=== PATIENT | male | born 1995 | race Caucasian/White ===

== ENCOUNTER 2021-04-03 12:29 | Emergency (ER) | payer MEDICAID, SELFPAY ==
[2021-04-03 12:31] VITALS: BP 138/92; PULSE 116; RESP 20; TEMP 36.8; O2SAT 97; BMI 33.8
--- NOTE | 2021-04-03 12:51 | CT_ITS ---
STUDY: CT BRAIN WITHOUT CONTRAST REASON FOR EXAM: Male, 25 years old. Trauma RADIATION DOSAGE (If Supplied By Facility): CTDIvol = ( 44.99 ) mGy, DLP = ( 745.49 ) mGycm TECHNIQUE: Transaxial CT imaging of the brain was performed without administration of intravenous contrast material. Individualized dose optimization techniques were used for this CT. COMPARISON: No relevant priors. FINDINGS: Normal soft tissue structures. Normal calvarium. Normal size ventricles and extra-axial spaces for the patient''s age. Normal white matter tracts of the cerebral hemispheres. Normal basal ganglia and thalami. Normal brainstem. Normal cerebellum. There is no intracranial hemorrhage. There are no findings of an acute ischemic infarction. Normal visualized paranasal sinuses. CT/Brain/Head without Contrast IMPRESSION: Normal unenhanced CT scan of the brain. Electronically Signed: Russ Aldana MD at 15:32 EST , Service support ,
--- NOTE | 2021-04-03 12:52 | EKG12_ITS ---
Test Reason : TRAMA Blood Pressure : / mmHG Vent. Rate : 111 BPM Atrial Rate : 111 BPM P-R Int : 174 ms QRS Dur : 094 ms QT Int : 322 ms P-R-T Axes : 067 058 030 degrees QTc Int : 437 ms Sinus tachycardia Otherwise normal ECG Confirmed by COLT BLANCHARD, DEYA ([id number]), magazine editor BUBBA BARGER ([id number]) on 04/05/2021 11:44:27 AM Referred By: BRIANDA Confirmed By:DEYA GREGORY MD
--- NOTE | 2021-04-03 12:57 | NURSING ---
NO OLD EKGS
[2021-04-03] MEDS: 0.9% Normal Saline 1,000 ML 1000 ML IV (13:19)
[2021-04-03 13:23] LABS: Absolute Lymphocyte Count 0.79 X10^3/uL (0.83-4.51); Absolute Neutrophil Count 7.5 X10^3/uL (2.0-7.7); Basophil# 0.02 X10^3/uL; Basophil% 0.2 % (0-1); Hematocrit 48.7 % (40-54); Hemoglobin 16.1 g/dL (13.0-16.5); Lymphocyte # 0.79 X10^3/ul (0.83-4.51); Lymphocyte % 9.2 % (19-41); Mean Corp Hgb Conc 33.1 g/dL (32-36); Mean Corpuscular Hgb 30.1 pg (27.0-32.0); Monocyte# 0.18 X10^3/uL; Monocyte% 2.1 % (0-10); NRBC Flagged by Analyzer 0 % (0-5); Neutrophil # 7.52 X10^3/uL (2.7-7.7); Neutrophil % 87.9 % (47-70); Platelet Count 275 K/mm3 (150-450); RBC Distribution Width CV 12.2 % (11.6-14.6); RBC Distribution Width SD 40.6 fl (35.1-43.9); Red Blood Count 5.35 M/mm3 (4.6-6.2); White Blood Count 8.6 K/mm3 (4.4-11.0)
[2021-04-03 13:46] LABS: Anion Gap 8 (5-15); BUN 16 mg/dL (7-18); BUN/Creat Ratio 14.8 RATIO (10-20); Calcium,Total 9.6 mg/dL (8.5-10.1); Chloride 105 mmol/L (98-107); Creatinine, Serum 1.08 mg/dL (0.70-1.30); D-Dimer Quantitative (DVT/PE) <= 0.27 FEU/ug/m (0.27-0.49); EST Glomerular Filtration Rate 88 mL/min (>60); Est Glom Filt Rate - Afr Amer 107 mL/min (>60); Estimated Creatinine Clearance 97.76 ml/min; Glucose 117 mg/dL (74-106); Potassium 4.2 mmol/L (3.5-5.1); Sodium Level 139 mmol/L (136-145); Troponin-I HS < 3 pg/mL (3.0-78.0)
--- NOTE | 2021-04-03 13:50 | RAD_ITS ---
STUDY: X-RAY - UNILATERAL RIBS ( RIGHT ) WITH CHEST REASON FOR EXAM: Male, 25 years old. Fall TECHNIQUE - RIBS: 4 view(s) of the ribs. TECHNIQUE - CHEST: Single PA view of the chest. COMPARISON: None. FINDINGS - RIBS: Normal visualized ribs without a demonstrated fracture. FINDINGS - CHEST: The lungs are clear and expanded. There is no demonstrated pleural abnormality. Normal size heart. Normal mediastinum and veronica. Normal visualized pulmonary arteries. Normal visualized aortic arch and descending thoracic aorta. Normal visualized thoracic spine. Normal visualized ribs, clavicles, and shoulders. There is no demonstrated abnormality of the visualized soft tissue structures of the upper abdomen. RAD/Ribs Uni Min 3V w/PA Chest IMPRESSION: RIBS: Normal x-ray examination of the ribs. CHEST: Normal x-ray examination of the chest. Electronically Signed: Russ Aldana MD at 15:35 EST , Service support ,
--- NOTE | 2021-04-03 13:50 | RAD_ITS ---
STUDY: X-RAY - RIGHT ANKLE REASON FOR EXAM: Male, 25 years old. Fall TECHNIQUE: 3 view(s) of the ankle. COMPARISON: None. FINDINGS: Normal visualized distal tibia and fibula. Normal medial and lateral malleoli. Normal tibiotalar articulation and ankle mortise. Normal visualized talus and calcaneus. The visualized subtalar, talonavicular, calcaneocuboid and tarsal articulations are normal. The soft tissue structures are unremarkable. RAD/Ankle min 3 Views IMPRESSION: Normal x-ray examination of the ankle. Electronically Signed: Russ Aldana MD at 15:28 EST , Service support ,
--- NOTE | 2021-04-03 13:50 | RAD_ITS ---
STUDY: X-RAY - RIGHT FOOT CLINICAL: Male, 25 years old. Fall TECHNIQUE: 3 view(s) of the foot. COMPARISON: None. FINDINGS: Normal talus, calcaneus, and tarsal bones. Normal visualized subtalar, talonavicular, calcaneocuboid, tarsal and tarsometatarsal articulations. Normal metatarsi. Normal metatarsophalangeal joint of the great toe. Normal tibial and fibular sesamoid bones. Normal interphalangeal joint of the great toe. Normal phalanges of the great toe. Normal second through fifth metatarsophalangeal joints. Normal interphalangeal joints and phalanges of the lesser toes. The soft tissue structures are unremarkable. RAD/Foot min 3 Views IMPRESSION: Normal x-ray examination of the foot. Electronically Signed: Russ Aldana MD at 15:31 EST , Service support ,
--- NOTE | 2021-04-03 13:50 | RAD_ITS ---
STUDY: X-RAY - LUMBAR SPINE REASON FOR EXAM: Male, 25 years old. Fall TECHNIQUE: 3 view(s) of the lumbar spine were obtained. COMPARISON: None FINDINGS: There is straightening of the normal lumbar lordosis. There is no substantial scoliosis. There is a normal alignment of the vertebrae. Normal vertebral bodies and endplates. Normal disc space heights. The soft tissue structures are unremarkable. RAD/Lumbar Spine 2 or 3 Views IMPRESSION: Straightening of the normal lumbar lordosis. Electronically Signed: Russ Aldana MD at 15:32 EST , Service support ,
--- NOTE | 2021-04-03 14:14 | EDS_ITS ---
HPI HPI - Fall History of Present Illness Chief Complaint: Trauma Narrative Narrative: Patient presenting for evaluation after a fall and trauma. Patient reports that he was at work. Patient reports that he had a fall of unknown circumstances, he is not sure if he tripped and fell or if he passed out, but regardless he hit the ground did hit his head and then when he woke up he had 2 pallets laying on top of him. Patient denies any visual changes numbness or weakness. He does report that he has right-sided rib pain as a result of falling. Patient also states that he has a significant amount of right ankle and foot pain. Patient denies that he had any preceding chest pain or palpitations. No history of DVT or PE, no recent travel or surgical history. Patient does report that he has a history of anxiety felt that potentially his fall may have been precipitated by an anxiety attack. Review of systems otherwise negative. [facility] Medical History Heart murmur HTN (hypertension) Home Medications lisinopril 10 mg PO DAILY 04/03/21 [History Last Taken Unknown] Allergy/AdvReac Type Severity Reaction Status Date / Time No Known Allergies Allergy Verified 04/03/21 12:36 Social History Smoking Status: Current every day smoker tobacco type: cigarettes ROS ROS ED Constitutional Constitutional ED: Denies chills or fever(s) ENT ENT ED: Denies rhinorrhea Cardiovascular Cardiovascular: Denies chest pain Respiratory/Chest Respiratory/Chest: Denies cough or dyspnea Gastrointestinal Gastrointestinal: Denies abdominal pain, diarrhea, nausea or vomiting Genitourinary Genitourinary ED: Denies dysuria or hematuria Musculoskeletal Musculoskeletal: Reports other Details: Right rib pain, right ankle and foot pain Integumentary Denies rash Neurologic Neurologic: Denies paresthesias or weakness Psychiatric Psychiatric: Denies depression Endocrine Endocrinology: Denies fatigue Allergic/Immunologic Allergic/Immunologic ED: Denies urticaria EXAM Physical Exam Const Vital Signs: 04/03/21 12:31 04/03/21 13:20 Temperature 98.3 F Temperature Source Temporal Pulse Rate 116 H Respiratory Rate 20 H Respiratory Effort Normal Non-Labored Respiratory Depth Normal Respiratory Pattern Normal Blood Pressure 138/92 H Blood Pressure Mean 107 Pulse Ox 97 Oxygen Delivery Method Room Air Room Air Positive well nourished and well developed Constitutional Narrative: Well-appearing age-appropriate male not acutely distressed airway is patent breath sounds are equal and bilateral 2+ radial pulses bilaterally symmetric GCS is 15 out of 15 General Appearance ED: well developed and NAD HEENT Reports moist mucous membranes HEENT Narrative: Patient has an abrasion over his right side of his forehead no signs of depressed skull fracture trauma; Negative for tenderness Eyes EOMs intact bilaterally Neck no lymphadenopathy, supple and no JVD Neck Narrative: Neck is nontender with no step-offs noted Chest Wall inspection of chest normal Resp normal respiratory effort and clear to auscultation bilaterally Resp Narrative: Tenderness palpation over the right lateral chest wall without any evidence of crepitus or deformity Cardio regular rhythm, no murmurs and peripheral pulses 2+ throughout Rate: tachycardic GI normal to inspection, nondistended, normoactive bowel sounds, non-tender and no masses Palpation: soft Back/Spine normal to inspection Extremity Extremity Narrative: Extremities are atraumatic except for examination of the right lower extremity. Patient has tenderness over the lateral malleolus of the right ankle, as well as some diffuse tenderness of the foot. Normal distal pulses and sensation, limited range of motion of the ankle secondary to pain. General Extremety ED: Negative for tenderness Neuro oriented x3 and no sensory deficits noted Sensorium / Orientation: alert Motor Exam: strength 5/5 throughout Psych mental status grossly normal Skin no rashes or lesions noted MDM MDM MDM Narrative Medical decision making narrative: Patient presented for evaluation secondary to a fall. Patient strangely found to be tachycardic, and was a little bit hazy on the preceding circumstances leading up to his fall so further work-up was obtained. EKG demonstrated tachycardia. CBC unremarkable, chemistry was unremarkable as well as troponin and D-dimer. CT imaging of the brain per radiology was negative. Radiographs of the lumbar spine, ribs, right foot, and right ankle were negative for bony pathology per radiology and my personal review. Patient did have some lateral soft tissue swelling of the ankle. Patient likely has an element of a sprain. Repeat evaluation the patient his heart rate was down to 110. Patient does not seem to have a malignant cause for his fall, and has a negative traumatic work-up at this point. I believe he safely can be discharged. Patient was given conservative management measures for an ankle sprain. Patient was discharged in stable condition. Lab Data Labs: Laboratory Results - last 24 hr 04/03/21 04/03/21 04/03/21 13:10 13:10 13:10 WBC 8.6 RBC 5.35 Hgb 16.1 Hct 48.7 MCV 91.0 MCH 30.1 MCHC 33.1 RDW Std Deviation 40.6 RDW Coeff of Ninfa 12.2 Plt Count 275 MPV 10.0 Immature Gran % (Auto) 0.600 Neut % (Auto) 87.9 H Lymph % (Auto) 9.2 L [place] % (Auto) 2.1 Eos % (Auto) 0.0 Baso % (Auto) 0.2 Absolute Neuts (auto) 7.5 Absolute Lymphs (auto) 0.79 L Nucleated RBC % 0 D-Dimer Quant (PE/DVT) <= 0.27 Sodium 139 Potassium 4.2 Chloride 105 Carbon Dioxide 26.0 Anion Gap 8 BUN 16 Creatinine 1.08 Estim Creat Clear Calc 97.76 Est GFR (MDRD) Af Amer 107 Est GFR (MDRD) Non-Af 88 BUN/Creatinine Ratio 14.8 Glucose 117 H Calcium 9.6 Troponin I High Sens < 3 L EKG Initial EKG: Attestation: I personally reviewed and interpreted this EKG as follows: (Sinus tachycardia with a rate of [address] segments normal T waves normal FL and QTc intervals no evidence of WPW or [place] morphology no acute ischemia or arrhythmia.) Discharge Plan Triage Chief Complaint: Trauma ED Provider: Fei Valdez Dx/Rx/DC Orders Clinical Impression: Contusion of rib, Ankle sprain Instructions: ED Contusion, Rib, ED Ankle Sprain (Adult) Prescriptions: No Action lisinopril 10 mg Tablet 10 mg PO DAILY RF: 0 Primary Care Provider: Care Physician,No Primary Referrals: Corporate,Care [GROUP OF PHYSICIANS] - 1 Day Care Physician,No Primary [Primary Care Provider] - Disposition Disposition: Home, Self Care
[2021-04-03 15:07] VITALS: BP 142/94; PULSE 81; RESP 16; O2SAT 99
--- NOTE | 2021-04-03 15:09 | ED.RN ---
THIS NURSE REVIEWED D/C INSTRUCTIONS WITH PT. PT VERBALIZED UNDERSTANDING OF INSTRUCTIONS. IV D/C. IV CATHETER INTACT. PT TOLERATED WELL. PT DENIES FURTHER NEEDS OR QUESTIONS AT THIS TIME.
== END 2021-04-03 15:10 | disposition home or self-care (01) ==
PROVIDERS: Emergency Provider Emergency Medicine
DX: S20.219A Contusion of unspecified front wall of thorax, initial encounter (principal); S93.401A Sprain of unspecified ligament of right ankle, initial encounter; I10 Essential (primary) hypertension; Z79.899 Other long term (current) drug therapy; F17.210 Nicotine dependence, cigarettes, uncomplicated; W19.XXXA Unspecified fall, initial encounter; Y93.89 Activity, other specified; Y92.89 Other specified places as the place of occurrence of the external cause; Y99.0 Civilian activity done for income or pay
CPT/HCPCS: 70450; 71101; 72100; 73610; 73630; 80048; 84484; 85025; 85379; 93005; 96360; 96361; 99285; J7030; A4216